=== PATIENT | male | born 1980 | race Caucasian/White ===

== ENCOUNTER 2022-09-28 14:43 | Emergency (ER) | payer OTHER, SELFPAY ==
--- NOTE | ~2022-09-28 | XR_ITS ---
EXAM: XR hand RT min 3V DATE: 09/28/2022 15:30 HISTORY: smashed palmar rt DIP 2nd finger and pos FB palmar 5th mcp . COMPARISON: None available. FINDINGS: Normal mineralization. No fracture or dislocation. No lytic or blastic lesion. Joint space s are maintained. No erosion or periosteal change. Soft tissue swelling and laceration over the right second DIP. IMPRESSION: No acute osseous finding in the right hand. No radiopaque foreign body. Reviewed, dictated and finalized at location K. IMPRESSION: No acute osseous finding in the right hand. No radiopaque foreign b luca.
[2022-09-28 14:55] VITALS: BP 148/89; PULSE 75; RESP 16; TEMP 36.2; O2SAT 98
--- NOTE | 2022-09-28 15:06 | ED.WOUNDLAC ---
HPI - Wound/Laceration General Chief Complaint: Wound/Laceration Stated Complaint: rt 2nd finger injury Time Seen by Provider: 09/28/22 15:12 Source: patient and RN notes reviewed Mode of arrival: ambulatory Limitations: no limitations History of Present Illness HPI narrative: 42-year-old male presents with multiple concerns. Reports injury to the 2nd digit of the right hand, he smashed the hand between 2 metal objects. He reports a laceration to the digit. He also reports a splinter that he has had on the palmar aspect of the same hand, unrelated to today's injury that he has been getting purulent drainage from. Related Data Allergies Allergy/AdvReac Type Severity Reaction Status Date / Time No Known Allergies Allergy Verified 09/28/22 15:12 Review of Systems Review of Systems: CONSTITUTIONAL: Denies malaise, chills, sweats, or fever. SKIN: Reports laceration to the 2nd digit of the right hand. Reports old splinters the palmar aspect of the right hand that has been draining MUSCULOSKELETAL: Denies muscle skeletal pain NEUROLOGIC: Denies numbness, weakness All systems reviewed & are unremarkable except as noted in HPI and below PMFSH Comments At time of signature, agree with nursing past medical, surgical, social and family history. There is no relevant family history pertinent to the presenting complaint Exam Narrative: GENERAL: Well-appearing, well-nourished, and in no acute distress. HEAD: Normocephalic, atraumatic. EYES: PERRLA, conjunctivae clear, and EOMI. ENT: Mucous membranes moist. NECK: Supple. No lymphadenopathy CHEST: Clear to auscultation. No respiratory distress. HEART: Regular rate and rhythm. SKIN: Warm, dry. Irregular laceration into the subcutaneous tissue noted to the 2nd digit of the right hand approximately 1.5 cm. Raised somewhat callus area noted to the palmar aspect of the right hand NEURO: Alert and oriented x3. PSYCH: Normal mood and affect Course Course Emergency Course: Patient is aware of diagnosis, understands and agrees to treatment plan. Anticipatory guidance given. Patient agrees to follow-up as directed and is aware of reasons to seek care at the emergency department. Portions of this record may have been created with voice recognition software Level of Care: Express Care Visit Vital Signs Vital signs: Vital Signs Temperature 97.1 F L 09/28/22 14:55 Pulse Rate 75 09/28/22 14:55 Respiratory Rate 16 09/28/22 14:55 Blood Pressure 148/89 H 09/28/22 14:55 Pulse Oximetry 98 09/28/22 14:55 Oxygen Delivery Room Air 09/28/22 14:55 Temperature 97.1 F L 09/28/22 14:55 Pulse Rate 75 09/28/22 14:55 Respiratory Rate 16 09/28/22 14:55 Blood Pressure 148/89 H 09/28/22 14:55 Pulse Oximetry 98 09/28/22 14:55 Oxygen Delivery Room Air 09/28/22 14:55 Reviewed. Procedures Abscess I/D hand: Date of Incision: 09/28/22 Time of Incision: 16:00 Side (if applicable): right Local Anesthetic: lidocaine 1% Amount of anesthesia used (mL): 1 Technique: incised with #11 blade Amount of fluid expressed (mL): 0.25 Irrigation: Yes Packing used?: none I&D Results: Pus Laceration Laceration 1: Date: 09/28/22 Site: hand Size (cm): 1,600 Description: flap and irregular Depth: simple, single layer Local Anesthetic: lidocaine 1% Amount of anesthesia used (mL): 2 Pre-repair: wound explored and irrigated extensively ====== Skin Level ====== Skin layer closed with: nylon Size (cm): 5-0 Number of sutures: 7 Technique: simple, interrupted ====== Subcutaneous Layer ====== ====== Muscle Layer ====== ====== Tendon Layer ====== MDM - Wound/Laceration MDM Narrative Medical decision making narrative: Wound explored for foreign body and copious irrigation provided with no evidence of FB. Discussed the julito
[2022-09-28 15:50] VITALS: BP 148/89; PULSE 75; RESP 16; TEMP 36.2; O2SAT 98
[2022-09-28] MEDS: TETANUS,DIPHTHERIA,AC PERTUSSIS ADULT (0.5 ML) BOOSTRIX IM (16:24)
== END 2022-09-28 16:30 | disposition home or self-care (01) ==
PROVIDERS: Emergency Provider Nurse Practitioner
DX: S61.211A Laceration without foreign body of left index finger without damage to nail, initial encounter (principal); X58.XXXA Exposure to other specified factors, initial encounter; L02.511 Cutaneous abscess of right hand; Z23 Encounter for immunization
CPT/HCPCS: 12001; 10060; 73130; 90471; 90715; 99203; G0463

== ENCOUNTER 2022-10-08 08:05 | Emergency (ER) | payer OTHER, SELFPAY ==
--- NOTE | 2022-10-08 08:09 | ED.WOUNDLAC ---
HPI - Wound/Laceration General Chief Complaint: Skin/Abscess/Foreign Body Stated Complaint: stitches removal Source: patient, RN notes reviewed and old records reviewed Mode of arrival: ambulatory Limitations: no limitations History of Present Illness HPI narrative: 42-year-old male presents to the [facility] for suture removal please sutures were placed on the 28 September, 10 days ago. Related Data Allergies Allergy/AdvReac Type Severity Reaction Status Date / Time No Known Allergies Allergy Verified 10/08/22 08:22 Review of Systems Review of Systems: All systems reviewed & are unremarkable except as noted in HPI and below Constitutional: Constitutional: Reports no additional constitutional complaints, Denies chills and Denies fever(s) Eyes: Eyes: Reports no additional eye complaints ENT: Reports system reviewed and no additional complaints, except as documented Cardiovascular: Cardiovascular: Reports no additional cardiovascular complaints Respiratory: Respiratory: Reports no additional respiratory complaints Gastrointestinal: Gastrointestinal: Reports no additional gastrointestinal complaints Musculoskeletal: Musculoskeletal: Reports no additional musculoskeletal complaints Integumentary/Breasts: Skin/Breast: Reports as per HPI Neurologic: Reports system reviewed and no additional complaints, except as documented Psychiatric: Psychiatric: Reports no additional psychiatric complaints Allergic/Immunologic: Allergic/Immunologic: Reports no additional allergic/immunologic complaints PMFSH Past Medical History Medical History (Updated 10/08/22 @ 08:26 by Jessica Mcallister APRN) No significant medical problems Surgical History Surgical History (Updated 10/08/22 @ 08:24 by Jessica Mcallister APRN) No history of previous surgery Social History Social History (Updated 10/08/22 @ 08:24 by Jessica Mcallister APRN) Gender identity (if verbalized by the patient): Male Comments At the time of my signature, I reviewed and agree with the nursing past medical, surgical, social, and family history. There is no relevant family history pertinent to the patient complaint. Exam Const: General: healthy appearing, comfortable, no acute distress, well developed, alert and well nourished Nutritional Appearance: well nourished Orientation/consciousness: patient oriented x3 Limitations: no limitations HENMT: Head: normal to inspection Ears: external ears normal Face/Nose/Sinus: Normal external nose present Face and sinus: normal facial exam Mouth: Yes Normal oral and palatal mucosa present, Yes lip normal and Yes moist mucous membranes Eyes: General: appearance normal, both eyes and all related structures Pupils: Equal, round and reactive pupils present Neck: Neck: normal visual inspection, full ROM, no lymphadenopathy and no meningeal signs Chest: Chest palpation & inspection: normal inspection of the chest Resp: Effort & Inspection: normal respiratory effort and no use of accessory muscles Auscultation: clear to auscultation bilaterally, no crackles, no rales, no rhonchi and no wheezes Cardio: Rate: regular rate Rhythm: regular rhythm Back/Spine/Pelvis: Cervical Spine: cervical ROM normal and No Cervical spine tenderness Thoracic/Lumbar Spine: thoracic and lumbar spine normal to inspection and thoraco-lumbar ROM normal Skin: General skin exam: normal color Rashes: no rashes Other: Well-approximated wound on the palmar aspect 2nd finger right hand dip joint sevens sutures in place, no signs of infection Neuro: General: patient oriented x3, moves all extremities, no meningeal signs and no focal motor deficits Cranial nerves: Yes Equal, round and reactive pupils present Speech: normal speech Gait exam (Neuro): Normal gait present Extrem: General: normal to inspection, full ROM and capillary refill normal Psych: Appearance: grossly normal and well kempt Mental Status: mental status grossly normal Affect: nor
[2022-10-08 08:15] VITALS: BP 136/86; PULSE 71; RESP 16; TEMP 36.2; O2SAT 98
== END 2022-10-08 08:32 | disposition home or self-care (01) ==
PROVIDERS: Emergency Provider Nurse Practitioner
DX: Z48.02 Encounter for removal of sutures (principal)
CPT/HCPCS: 99211; G0463

== ENCOUNTER 2023-08-13 08:23 | Emergency (ER) | payer OTHER, SELFPAY ==
[2023-08-13 08:34] VITALS: BP 128/84; PULSE 61; RESP 16; TEMP 36.6; O2SAT 100
--- NOTE | 2023-08-13 08:40 | ED.SKABFB ---
HPI - Skin/Abscess/Foreign Bdy General Chief complaint: Skin/Abscess/Foreign Body Stated complaint: Wound Buttocks Time Seen by Provider: 08/13/23 08:40 Source: patient Mode of arrival: ambulatory Limitations: no limitations History of Present Illness HPI narrative: 43 y/o male presented for c/o draining wound to buttocks/ ronan area today. States he has had irritation and discomfort with walking and sitting over the past few days. Applied hemorrhoid cream to the site x2 days. Today after using bathroom he noted bloody pus drainage on the toilet tissue. Reports some improvement in pain. Denies abdominal pain, n/v/d/f/c. Related Data Home Medications Medication Instructions Recorded Confirmed No Home Medications 08/13/23 08/13/23 Allergies Allergy/AdvReac Type Severity Reaction Status Date / Time No Known Allergies Allergy Verified 08/13/23 08:25 Review of Systems Review of Systems: CONSTITUTIONAL: Denies body aches, fever, chills, or sweats. EYES: Denies visual changes, redness, or discharge. ENT: Denies rhinorrhea, congestion CARDIOVASCULAR: Denies chest pain, palpitations, or edema. RESPIRATORY: Denies cough or dyspnea. GASTROINTESTINAL: Denies abdominal pain, nausea, vomiting, or diarrhea. SKIN: reports draining wound to ronan area MUSCULOSKELETAL: Denies back pain, joint pain, or myalgia. NEUROLOGIC: Denies headache, numbness, tingling, or weakness. [facility] Past Medical History Medical History No significant medical problems Surgical History Surgical History No history of previous surgery Social History Social History (Updated 08/13/23 @ 08:51 by Paola Ta APRN) Smoking packs per day: 0.25 Smoking cigarettes per day: 5.0 Smoking status: Current every day smoker Gender identity (if verbalized by the patient): Male Comments At time of signature, I have reviewed and agree with nursing past medical, surgical, social and family history unless otherwise noted. Please see nursing chart for further information. There is no relevant family history pertinent to the presenting complaint Exam Narrative: GENERAL: Well-appearing HEAD: Normocephalic, atraumatic. EYES: conjunctivae clear, and EOMI. ENT: Mucous membranes moist. Oropharynx without edema, erythema or lesions. NECK: Supple. No lymphadenopathy CHEST: Clear to auscultation. HEART: Regular rate and rhythm. SKIN: Warm, dry. Firm indurated area to perineum approx [id number] diameter, actively draining bloody/purulent discharge, mild tenderness. NEURO: Alert and oriented x3. Course Course Emergency Course: Patient is aware of diagnosis, understands and agrees to treatment plan. Anticipatory guidance given. Patient agrees to follow-up as directed and is aware of reasons to seek care at the emergency department. Portions of this record may have been created with voice recognition software Level of Care: Express Care Visit Vital Signs Vital signs: Vital Signs Temperature 97.9 F 08/13/23 08:34 Pulse Rate 61 08/13/23 08:34 Respiratory Rate 16 08/13/23 08:34 Blood Pressure 128/84 08/13/23 08:34 Pulse Oximetry 100 08/13/23 08:34 Oxygen Delivery Room Air 08/13/23 08:34 Temperature 97.9 F 08/13/23 08:34 Pulse Rate 61 08/13/23 08:34 Respiratory Rate 16 08/13/23 08:34 Blood Pressure 128/84 08/13/23 08:34 Pulse Oximetry 100 08/13/23 08:34 Oxygen Delivery Room Air 08/13/23 08:34 Reviewed Transfer Transfered to: [facility] Transportation: Other (private vehicle) Transfer rationale: Pt is agreeable to transfer. Requests transfer to [facility] via private vehicle. Risks of transportation reviewed with pt including injury, worsening of condition and . v/u. Report called to hospital, spoke with Lesli LOGAN, accepting physician. Pt is in stable condition at [facility]
== END 2023-08-13 08:55 | disposition short-term general hospital (02) ==
PROVIDERS: Emergency Provider Nurse Practitioner Family
DX: L02.31 Cutaneous abscess of buttock (principal); F17.210 Nicotine dependence, cigarettes, uncomplicated
CPT/HCPCS: 99212; G0463

== ENCOUNTER 2023-08-13 09:15 | Emergency (ER) | payer OTHER, SELFPAY ==
--- NOTE | ~2023-08-13 | CT_ITS ---
EXAMINATION: CT abdomen pelvis w con INDICATION: Perineal abscess TECHNIQUE: Computed tomographic images of the abdomen and pelvis were obtained after the administrati on of 100 cc of Omnipaque 350 intravenous contrast. The dose-length product (DLP) was 620.36 mGy-cm. Automated exposure control and iterative reconstruction technique were employed. COMPARISON: None available FINDINGS: Minimal dependent atelectasis is present in the lung bases. The heart size is normal. The l iver, spleen, pancreas, gallbladder, and adrenal glands are normal. The kidneys are unremarkable. No pathologically enlarged abdominal or pelvic lymph nodes are identified. No free intraperitoneal gas o r evidence of bowel obstruction. The appendix is normal. There is cellulitis of the perineum. There i s a questionable associated 5 mm abscess. No soft tissue gas is identified. IMPRESSION: 1. Perineal cellulitis and possible tiny abscess. Recommend surgical evaluation. Reviewed, dictated and finalized at location B. IMPRESSION: 1. Perineal cellulitis and possible tiny abscess. Recommend surgical evaluation .
[2023-08-13 09:22] VITALS: BP 156/103; PULSE 72; RESP 18; TEMP 36.4; O2SAT 100
--- NOTE | 2023-08-13 09:47 | ED.GENADULT ---
HPI - General Adult General Chief complaint: Skin/Abscess/Foreign Body Stated complaint: abscess Time Seen by Provider: 08/13/23 09:24 History of Present Illness HPI narrative: Twan Ko is a 43 y/o male who presents with reports of noticing an abscess to his perineum 2 days ago. He states his pain got significantly worse yesterday rating at a 10/10 and today the area busted and started to drain. He went to an and they sent him here because of the area that it is in. Patient denies any fever/chills currently states his pain is improved, and area still draining purulent drainage. Related Data Allergies Allergy/AdvReac Type Severity Reaction Status Date / Time No Known Allergies Allergy Verified 08/13/23 09:29 Review of Systems Review of Systems: CONSTITUTIONAL: Denies fever, chills, or sweats. EYES: Denies visual changes, redness, or discharge. ENT: Denies rhinorrhea, congestion, sore throat, or otalgia. CARDIOVASCULAR: Denies chest pain, palpitations, or edema. RESPIRATORY: Denies cough or dyspnea. GASTROINTESTINAL: Denies abdominal pain, nausea, vomiting, or diarrhea. GENITOURINARY: Denies dysuria or hematuria. SKIN: Denies rash, complains of swelling/wound/abscess between scrotum and anus MUSCULOSKELETAL: Denies back pain, joint pain, or myalgia. NEUROLOGIC: Denies headache, numbness, dizziness, or weakness. PSYCHIATRIC: Denies anxiety or depression. [facility] Past Medical History Medical History No significant medical problems Surgical History Surgical History No history of previous surgery Social History Social History (Updated 08/13/23 @ 08:51 by Paola Ta APRN) Smoking packs per day: 0.25 Smoking cigarettes per day: 5.0 Smoking status: Current every day smoker Gender identity (if verbalized by the patient): Male Exam Narrative: GENERAL: Well-appearing, well-nourished, and in no acute distress. HEAD: Normocephalic, atraumatic. EYES: PERRLA and EOMI. ENT: Nares clear, no rhinorrhea or epistaxis. Mucous membranes moist. Oropharynx without tonsillar hypertrophy exudate or other lesions. NECK: Supple. No adenopathy or masses. No carotid bruits or JVD CHEST: Clear to auscultation. No respiratory distress. No wheezes rales or rhonchi HEART: Regular rate and rhythm. No murmur heard. Normal peripheral pulses. ABDOMEN: Soft, nontender, nondistended, normal active bowel sounds. EXTREMITIES: Normal range of motion. No edema. SKIN: Area to perineum noted to have an area of induration/ surrounding erythema/ actively draining purulent drainage NEURO: No focal deficits. Alert and oriented x3. PSYCH: Normal mood and affect. Course Vital Signs Vital signs: Vital Signs Temperature 36.4 C L 08/13/23 09:22 Pulse Rate 72 08/13/23 09:22 Respiratory Rate 18 08/13/23 09:22 Blood Pressure 156/103 H 08/13/23 09:22 Pulse Oximetry 100 08/13/23 09:22 Oxygen Delivery Room Air 08/13/23 09:22 Temperature 36.4 C L 08/13/23 09:22 Pulse Rate 61 08/13/23 11:01 Respiratory Rate 15 08/13/23 11:01 Blood Pressure 127/89 08/13/23 11:01 Pulse Oximetry 100 08/13/23 11:01 Oxygen Delivery Room Air 08/13/23 09:22 Procedures Abscess I/D ronan-rectal: Date of Incision: 08/13/23 Time of Incision: 12:00 Sedation/analgesia: none Local Anesthetic: lidocaine 1% Amount of anesthesia used (mL): 5 Technique: incised with #11 blade Amount of fluid expressed (mL): 1 Irrigation: No Packing used?: none (General surgery to bedside and placed iodoform packing ) I&D Results: Pus and Blood Abcess I&D Additional Comments: Patient verbalized consent for procedure, and tolerated well Medical Decision Making MDM Narrative Medical decision making narrative: On exam pt is noted to have induration to
[2023-08-13] MEDS: SODIUM CHLORIDE 0.9% IV 1,000 ML 999 ML IV CONT (09:49)
[2023-08-13 09:55] LABS: Basophils Absolute Auto 0.1 K/mm3 (0.0-0.1); Basophils Percent Auto 0.9 % (0.2-1.2); Eosinophils Absolute Auto 0.2 K/mm3 (0-0.3); Hematocrit 47.4 % (42.0-52.0); Hemoglobin 15.6 g/dL (14.0-18.0); Immature Granulocyte Absolute 0.03 K/mm3 (0.00-0.031); Immature Granulocyte Percent A 0.4 % (0-0.5); Mean Corpuscular HGB Conc 32.9 g/dl (32-36); Mean Corpuscular Hemoglobin 31.6 pg (26-34); Mean Platelet Volume 10.8 fl (7.4-10.4); Monocytes Absolute Auto 0.8 K/mm3 (0.1-0.6); Monocytes Percent Auto 9.8 % (2.6-8.5); Neutrophils Absolute Auto 5.8 K/mm3 (1.3-6.7); Neutrophils Percent Auto 72.9 % (45.5-73.1); Platelet Count Result 205 k/mm3 (150-375); Red Blood Count 4.94 M/mm3 (4.6-6.20); Red Cell Distribution Width 12.2 % (11.5-14.5); White Blood Count 7.9 K/mm3 (4.5-10.0)
[2023-08-13 10:08] LABS: Anion Gap 7 mmol/L (8-16); Blood Urea Nitrogen 15 mg/dL (9-20); Calcium 9.4 mg/dL (8.4-10.2); Carbon Dioxide 28 mmol/L (22-30); Chloride 105 mmol/L (98-107); Estimated CRCL calculation 109 ml/min; Estimated Glomerular Filt Rate > 60; Glucose 109 mg/dL (65-110); Potassium 3.9 mmol/L (3.4-5.0); Sodium 140 mmol/L (137-145)
[2023-08-13 11:01] VITALS: BP 127/89; PULSE 61; RESP 15; O2SAT 100
[2023-08-13 12:39] VITALS: BP 126/82; PULSE 56; RESP 18; O2SAT 100
--- NOTE | 2023-08-14 08:56 | PM.CNGS ---
Assessment and Plan Assessment and plan (1) Perineal abscess: Code(s): L02.215 - Cutaneous abscess of perineum Status: Acute Assessment and Plan: Patient presented to the ER and found to have a small perineal abscess. S/p I&D in the ER. On exam, it appears to be adequately drained. No indication for any further surgical intervention at this time. I packed the incision with 1/4 iodoform gauze and covered with 4x4 gauze. The patient was instructed to remove the packing tomorrow and leave open. Okay to apply gauze dressings daily until no longer having any drainage. He can wash over the incision daily with soap and water. Recommended discharging with oral antibiotics and follow-up with Dr. Marie next week. (2) Tobacco abuse: Code(s): Z72.0 - Tobacco use Status: Acute Plan I have discussed the patient's case and plan of care with Dr. Marie. History of Present Illness Consult details Consult date: 08/13/23 Reason for consult: other (Perineal abscess) Requesting physician: Mariama Zaman APRN Narrative: This is a 43-year-old smoker who presented to the ER with complaints of swelling and pain to the perineum x 2 days. This area began to drain purulent drainage today. He decided to go to an urgent care, who subsequently sent him to the ER due to the location of the abscess. Labs were essentially normal. CT scan of the abdomen pelvis showed perineal cellulitis and possible tiny abscess. The ED provider proceeded with bedside incision and drainage. Our service was then called regarding the perineal abscess. He is now seen in the ER for consultation. Review of Systems Constitutional: Constitutional: Reports no additional constitutional complaints, Denies chills, Denies fever(s) and Denies headache(s) Cardiovascular: Cardiovascular: Reports no additional cardiovascular complaints and Denies chest pain Respiratory: Respiratory: Reports no additional respiratory complaints and Denies dyspnea Gastrointestinal: Gastrointestinal: Reports no additional gastrointestinal complaints, Denies abdominal pain, Denies constipation and Denies diarrhea Comments: Pain and swelling at perineum Genitourinary: Genitourinary: Reports no additional male genitourinary complaints, Denies dysuria, Denies scrotal swelling and Denies testicular pain Integumentary/Breasts: Skin/Breast: Reports swelling (Perineum swelling and pain) PMFSH Past Medical History Medical History No significant medical problems Surgical History Surgical History No history of previous surgery Social History Social History Smoking packs per day: 0.25 Smoking cigarettes per day: 5.0 Smoking status: Current every day smoker Gender identity (if verbalized by the patient): Male Meds Home Medications and Allergies Home Medications Medication Instructions Recorded Confirmed Type clindamycin HCl 150 mg capsule 450 mg PO TID #63 caps 08/13/23 Rx (Cleocin HCl) Allergies Allergy/AdvReac Type Severity Reaction Status Date / Time No Known Allergies Allergy Verified 08/13/23 09:29 Vital Signs Vital Signs - 24 hr 08/13/23 09:22 08/13/23 11:01 08/13/23 12:39 Temperature 97.5 F L Pulse Rate 72 61 56 L Respiratory Rate 18 15 18 Blood Pressure 156/103 H 127/89 126/82 Pulse Oximetry 100 100 100 Oxygen Delivery Room Air Exam Const: General: comfortable and no acute distress Orientation/consciousness: patient oriented x3 Neck: Neck: normal visual inspection Resp: Effort & Inspection: normal respiratory effort Auscultation: clear to auscultation bilaterally Cardio: Rate: regular rate Rhythm: regular rhythm GI: Inspection: non-distended GI Palp: Yes Soft to palpation and No Tenderness to palpation present (GI) Auscultation: normal bowel sounds
== END 2023-08-13 12:56 | disposition home or self-care (01) ==
PROVIDERS: Emergency Provider Nurse Practitioner Family
DX: L02.215 Cutaneous abscess of perineum (principal); L03.315 Cellulitis of perineum; F17.210 Nicotine dependence, cigarettes, uncomplicated
CPT/HCPCS: 10061; 36415; 74177; 80048; 83605; 85025; 87070; 87205; 96365; 99284; J0696; J7030; Q9967

== ENCOUNTER 2025-08-09 08:05 | Emergency (ER) | payer OTHER, SELFPAY ==
--- NOTE | 2025-08-09 08:10 | ED.SKABFB ---
HPI - Skin/Abscess/Foreign Bdy General Chief complaint: Skin/Abscess/Foreign Body Stated complaint: bump on nose Time Seen by Provider: 08/09/25 08:13 Source: patient, RN notes reviewed and old records reviewed Mode of arrival: ambulatory Limitations: no limitations History of Present Illness HPI narrative: 45-year-old male presents to the [facility] with a bump to the right side of his nose. States a small bump has been there for ?a while? than on Friday, 3 days ago, become red and inflamed. Woke up this morning with more swollen around the abscess. Area is fluctuant. Denies any blurry vision or change in vision. No surrounding erythema Onset (ago): day(s) (3) Treatments prior to arrival: none Related Data Allergies Allergy/AdvReac Type Severity Reaction Status Date / Time No Known Allergies Allergy Verified 08/09/25 08:08 Review of Systems Review of Systems: All systems reviewed & are unremarkable except as noted in HPI and below Constitutional: Constitutional: Reports no additional constitutional complaints ENT: Reports system reviewed and no additional complaints, except as documented Musculoskeletal: Musculoskeletal: Reports no additional musculoskeletal complaints Integumentary/Breasts: Skin/Breast: Reports as per HPI, Reports swelling, Reports erythema, Denies rash and Denies wounds Neurologic: Reports system reviewed and no additional complaints, except as documented PMFSH Past Medical History Medical History No significant medical problems Surgical History Surgical History No history of previous surgery Social History Social History Smoking packs per day: 0.25 Smoking cigarettes per day: 5.0 Smoking status: Current every day smoker Gender identity (if verbalized by the patient): Male Comments At the time of my signature, I reviewed and agree with the nursing past medical, surgical, social, and family history. There is no relevant family history pertinent to the patient complaint. Exam Const: General: cooperative, healthy appearing, comfortable, no acute distress, well developed, alert and well nourished Nutritional Appearance: well nourished Orientation/consciousness: patient oriented x3 Limitations: no limitations HENMT: Head: normal to inspection Head images:  1. 2 x 1-1/2 cm red fluctuant area. No surrounding erythema. Ears: hearing grossly normal bilaterally and external ears normal Mouth: Yes Normal oral and palatal mucosa present, Yes lip normal, Yes tongue normal and Yes moist mucous membranes Eyes: General: appearance normal, both eyes and all related structures Alignment and Position: alignment normal Neck: Neck: normal visual inspection, full ROM, no lymphadenopathy and no meningeal signs Chest: Chest palpation & inspection: normal inspection of the chest Resp: Effort & Inspection: normal respiratory effort and able to speak in complete sentences Cardio: Rate: regular rate Skin: General skin exam: normal color and no rashes or lesions noted Neuro: General: patient oriented x3, gait normal, moves all extremities and no meningeal signs Cognition (Neuro): normal cognition Speech: normal speech Gait exam (Neuro): Normal gait present Extrem: General: normal to inspection, full ROM, capillary refill normal and normal gait Psych: Appearance: grossly normal and well kempt Mental Status: mental status grossly normal Speech and movement: Normal speech and movement present and Clear speech present Affect: normal affect Attitude: cooperative Course Course Level of Care: Express Care Visit Vital Signs Vital signs: Vital Signs Temperature 98.1 F 08/09/25 08:14 Pulse Rate 85 08/09/25 08:14 Respiratory Rate 18 08/09/25 08:14 Blood Pressure 113/93 H 08/09/25 08:14 Pulse Oximetry 100 08/09/25 08:14 Oxygen Delivery Room Air 08/09/25 08:14 Temperature 98.1 F 08/09/25 08:14 Pulse Rate 85 08/09/25 08:14 Respiratory Rate 18 08/09/25 08:14 Blood Pressure 113/93 H 08/09/25 08:14 Pulse Oximetry 100 08/09/25 08:14 Oxygen Delivery Room Air 08/09/25 08:14 Reviewed Procedures Abscess I/D face: Date of Incision: 08/09/25 Time of Incision: 08:25 Side (if applicable): right Technique: needle aspiration Amount of fluid expressed (mL): 3 I&D Results: Pus and Blood Abcess I&D Additional Comments: Procedure explained, verbal consent obtained. Discussed doing needle aspiration due to the amount of fluctuance, draining and collecting a culture. Area cleaned with wound cleanser, at the top of the fluctuant area used 18 gauge, needle aspiration done, pus and blood. Culture collected Patient tolerated procedure well MDM - Skin/Abscess/Foreign Bdy MDM Narrative Medical decision making narrative: Patient sitting comfortably in exam room. Patient is nontoxic, vitals are stable. Afebrile Three day history of a bump to the right side the nose that his increased. Had a small area sounds like a cyst to the area prior to that. Area cleaned with wound cleanser, used 18 gauge needle, drained abscess. Patient is appropriate for discharge with close follow-up Discharge instructions reviewed with patient, as well as provided in writing per nursing staff. The instructions also include specific and strict return/GO TO THE ER as well as f/u information. All questions have been answered, and the patient deny any further questions with discharge and discharge plan. Some parts of this dictation were generated by voice recognition software and may contain typographical and/or grammatical inaccuracies. Differential Diagnosis Differential diagnosis: Likely abscess of skin or subcutaneous tissue, cellulitis and contact dermatitis Critical Care Time Critical Care Time Critical Care Time: No Discharge Plan Discharge Clinical Impression: Abscess of external nose Patient Disposition: Home Condition: Stable Instructions: Abscess (ED) Additional Instructions: Wash area twice a day with warm soapy water, pat dry. If he can do warm compresses with Epson salt that will also help Take the antibiotic as prescribed Follow-up with Plastic surgery Follow-up with primary care provider If you are having a hard time finding a physician please call our [facility] group liaison at [phone]. For new or worsening symptoms please go directly to the emergency room Patient Language: Luxembourgish Prescriptions: New sulfamethoxazole-trimethoprim [Bactrim DS] 800-160 mg tablet 1 tablet PO Q12H Qty: 14 0RF Follow-up/Referrals: Leonid Mcleod MD [Physician, Plastic Surgery] - 3 Days Clinical Impression: Abscess of external nose PHYSICIAN,GASTROINTESTINAL TECHNICIAN [Primary Care Provider, Internal Medicine] Stand Alone Forms: Work/School Release IP Time of Disposition: 08:42
[2025-08-09 08:14] VITALS: BP 113/93; PULSE 85; RESP 18; TEMP 36.7; O2SAT 100
== END 2025-08-09 08:49 | disposition home or self-care (01) ==
PROVIDERS: Emergency Provider Nurse Practitioner
DX: J34.0 Abscess, furuncle and carbuncle of nose (principal); F17.210 Nicotine dependence, cigarettes, uncomplicated
CPT/HCPCS: 10160; 87070; 87075; 99213; G0463